=== PATIENT | male | born 1965 | race American Indian/Alaskan Native ===

== ENCOUNTER 2018-05-26 14:18 | Emergency (ER) | payer SELFPAY ==
[2018-05-26 14:46] VITALS: BP 200/115
[2018-05-26] MEDS ORDERED: BOOSTRIX IM ONE (14:50)
--- NOTE | 2018-05-26 14:50 | Emergency Department Report ---
Blank Doc - Documentation Documentation: 52 y/o male left thumb vs table saw. seeks finger to be dressed and cleaned. w ants to go home to finish work. plan xray tetanus clean wound abxx
[2018-05-26] MEDS ORDERED: SILVER NITRATE TP ONE (16:31)
[2018-05-26] MEDS ORDERED: IBUPROFEN PO ONE (16:32)
--- NOTE | 2018-05-26 16:37 | Emergency Department Report ---
ED Laceration HPI - HPI Chief Complaint: Extremity Injury, Upper Stated Complaint: CUT FINGER TIP OFF Time Seen by Provider: 05/26/18 14:38 Occurred When: Today Location: Upper Extremity (left thumb) Laceration Symptoms: Yes Pain, No Foreign Body Sensation, No Numbness, No Weakness Other History: 52-year-old male presents to ED complaining of accidentally sort of systems see above his left thumb. He states his tetanus is not up to date. He will be receiving a tetanus update here. ED Review of Systems ROS: Stated complaint: CUT FINGER TIP OFF Other details as noted in HPI Comment: All other systems reviewed and negative ED Past Medical Hx - Past Medical History Previous Medical History?: No - Surgical History Past Surgical History?: No - Social History Smoking Status: Never Smoker Substance Use Type: None - Medications Home Medications: Home Medications Medication Instructions Recorded Confirmed Last Taken Type Acetaminophen/Codeine [Tylenol 1 tab PO Q6H PRN #12 tab 05/26/18 Unknown Rx /Codeine # 3 tab] Cephalexin [Keflex] 500 mg PO BID #14 capsule 05/26/18 Unknown Rx Clindamycin [Clindamycin CAP] 300 mg PO Q8H #15 cap 05/26/18 Unknown Rx Ibuprofen [Motrin 800 MG tab] 800 mg PO TID #30 tablet 05/26/18 Unknown Rx Laceration Physical Exam - Exam General: Vital signs noted. No distress. Alert and acting appropriately. Laceration Location: Upper Extremity Laceration Exam: Yes Normal Distal CMS, No Exposed Tendon, Vessel, or Nerve, No Tendon Injury ED Course Vital Signs 05/26/18 14:41 Temperature 97.9 F Pulse Rate 99 H Respiratory 16 Rate Blood Pressure 200/115 O2 Sat by Pulse 98 Oximetry ED Medical Decision Making - Medical Decision Making 52-year-old male presents to the advance fingertip. Finger was cleaned with Betadine and washed. Dressing applied to a foster fingertip. Discussed to follow-up with her orthopedic. Vital signs are normal, bleeding is controlled. Wound was sterilely wrapped. Instructions given the patient on wound care for swollen. Discussed the patient's follow-up in 3-5 days for wound check. Critical care attestation.: If time is entered above; I have spent that time in minutes in the direct care of this critically ill patient, excluding procedure time. ED Disposition Clinical Impression: Fingertip avulsion Disposition: [id number] TO HOME OR SELFCARE Is pt being admited?: No Does the pt Need Aspirin: No Condition: Stable Instructions: Acute Wound Care (ED) Additional Instructions: Make sure to follow up with the primary care physician as discussed. Take all your medications as you've been prescribed. If you have any worsening symptoms or develop new symptoms please return to ED immediately. Prescriptions: Acetaminophen/Codeine [Tylenol /Codeine # 3 tab] 1 tab PO Q6H PRN #12 tab PRN Reason: Pain , Severe (7-10) Cephalexin [Keflex] 500 mg PO BID #14 capsule Clindamycin [Clindamycin CAP] 300 mg PO Q8H #15 cap Ibuprofen [Motrin 800 MG tab] 800 mg PO TID #30 tablet Referrals: [facility] [Outside] - 3-5 Days [facility] [Outside] - 3-5 Days Forms: Accompanied Note, Work/School Release Form(ED) Time of Disposition: 17:25
--- NOTE | 2018-05-26 17:52 | XRay Report ---
FINAL REPORT EXAM: XR FINGER(S) 2+V LT HISTORY: left thumb injury TECHNIQUE: Right hand three views PRIORS: None. FINDINGS: There is soft tissue irregularity distal aspect of the thumb. There is acute comminuted fracture of t he tuft distal phalanx. Bandage overlies the thumb within the limits of the exam no definitive radiop aque foreign bodies are seen. Joint spaces are within normal limits. Adjacent bony and soft tissue st ructures are intact. IMPRESSION: Laceration with comminuted fracture distal phalanx of the thumb
== END 2018-05-26 18:14 | disposition home or self-care (01) ==
LOC: ED 14:18
DX: S61.012A Laceration without foreign body of left thumb without damage to nail, initial encounter (principal); W45.8XXA Other foreign body or object entering through skin, initial encounter; Y93.89 Activity, other specified; Y99.8 Other external cause status; Y92.89 Other specified places as the place of occurrence of the external cause
CPT/HCPCS: 90471; 90715